=== PATIENT | female | born 1955 | race Caucasian/White ===

== ENCOUNTER 2017-02-04 19:56 | Emergency (ER) | payer BC ==
[2017-02-04 20:23] VITALS: BP 118/74
--- NOTE | 2017-02-04 21:19 | RAD ---
INDICATION: Right fifth toe trauma. TECHNIQUE: 3 views of the right fifth toe were obtained. FINDINGS: The bones are in normal alignment. No fracture is seen. Joint spaces appear maintained. IMPRESSION: NO EVIDENCE FOR FRACTURE.
--- NOTE | 2017-02-04 21:42 | UC ---
Lower Extremity/Ankle HPI - HPI Summary HPI Summary: ON 01/29/17 CLOSED CAR DOOR ONTO RIGHT FOOT (FIFTH TOE). SINCE TIME OF INJURY HAS TREATED INJURY WITH LISA TAPING, ICE, BUT HAS BEEN WALKING MILES TO WORK EACH DAY. - History of Current Complaint Chief Complaint: UCLowerExtremity Stated Complaint: TOE INJURY Time Seen by Provider: 02/04/17 20:17 Hx Obtained From: Patient Onset/Duration: Sudden Onset, Lasting Days, Still Present Severity Initially: Moderate Severity Currently: Moderate Aggravating Factor(s): Standing, Ambulation Alleviating Factor(s): Rest Able to Bear Weight: Yes - Risk Factors Gout Risk Factors: Negative DVT Risk Factors: Negative, Recent Trauma Septic Arthritis Risk Factor: Negative - Allergies/Home Medications Allergies/Adverse Reactions: Allergies Allergy/AdvReac Type Severity Reaction Status Date / Time No Known Allergies Allergy Verified 04/20/16 14:36 PMH/Surg Hx/FS Hx/Imm Hx Previously Healthy: Yes Endocrine History Of: Denies: Diabetes, Thyroid Disease Cardiovascular History Of: Denies: Cardiac Disorders, Hypertension, Pacemaker/ICD Respiratory History Of: Denies: COPD, Asthma GI/ History Of: Denies: Gastroesophageal Reflux, Ulcer, Renal Disease Neurological History Of: Reports: Migraine - OCCASSIONAL, NONE IN 2013, RELIEVED WITH OTC Denies: CVA, Dementia, Seizures Cancer History Of: Denies: Breast Cancer Other History Of: Negative For: Anticoagulant Therapy - Surgical History Surgical History: Yes Surgery Procedure, Year, and Place: 1973 RUPTURED APPENDECTOMY [facility]. 1986 [facility] [place]. TONSILLECTOMY [facility] [place]. 2012 fx right arm/wrist - Family History Known Family History: Positive: None Negative: Blood Disorder - Social History Occupation: Employed Full-time Lives: With Family Alcohol Use: Occasionally Substance Use Type: None Smoking Status (MU): Never Smoked Tobacco Review of Systems Constitutional: Negative Skin: Negative Eyes: Negative ENT: Negative Respiratory: Negative Cardiovascular: Negative Gastrointestinal: Negative Genitourinary: Negative Motor: Negative Neurovascular: Negative Musculoskeletal: Arthralgia - LEFT FIFTH TOE TENDERNESS, Myalgia - LEFT FIFTH TOE TENDERNESS RADIATES TO LEFT FIFTH Neurological: Negative Psychological: Negative All Other Systems Reviewed And Are Negative: Yes Physical Exam Triage Information Reviewed: Yes Appearance: Well-Appearing, No Pain Distress, Well-Nourished Vital Signs: Initial Vital Signs Temp 98.6 F 02/04/17 20:17 Pulse 80 02/04/17 20:17 Resp 16 02/04/17 20:17 BP 118/74 02/04/17 20:17 Pulse Ox 97 02/04/17 20:17 Vital Signs Reviewed: Yes Eye Exam: Normal ENT Exam: Normal ENT: Positive: Normal ENT inspection Dental Exam: Normal Neck exam: Normal Respiratory Exam: Normal Respiratory: Positive: Chest non-tender, Lungs clear, Normal breath sounds, No respiratory distress, No accessory muscle use Cardiovascular Exam: Normal Cardiovascular: Positive: RRR, No Murmur, Pulses Normal Abdominal Exam: Normal Musculoskeletal: Positive: Other: - TENDERNESS AT LEFT GREAT TOE Neurological Exam: Normal Neurological: Positive: Alert Psychological Exam: Normal Skin Exam: Normal Lower Extremity Course/Dx - Differential Dx/Diagnosis Differential Diagnosis/HQI/PQRI: Contusion, Fracture (Closed), Sprain, Strain Provider Diagnoses: LEFT FIFTH TOE CONTUSION. LEFT FIFTH TOE MUSCLE STRAIN Discharge - Discharge Plan Condition: Stable Disposition: HOME Patient Education Materials: Muscle Strain (ED), Foot Contusion (ED), RICE Therapy (ED) Referrals: [facility] [place] [facility] [Outside] Savana Rojas MD [Primary Care Provider] -
== END 2017-02-04 21:42 | disposition home or self-care (01) ==
LOC: UCEAST 19:56
DX: S90.122A Contusion of left lesser toe(s) without damage to nail, initial encounter (principal); S96.912A Strain of unspecified muscle and tendon at ankle and foot level, left foot, initial encounter; W23.0XXA Caught, crushed, jammed, or pinched between moving objects, initial encounter; Y93.9 Activity, unspecified; Y92.810 Car as the place of occurrence of the external cause
CPT/HCPCS: 99211; G0463

== ENCOUNTER 2017-12-29 11:33 | Day surgery (SDC) | payer BC ==
[~2017-12-29 11:33] MED LIST: Buffered Lidocaine 0.9% SYRIN* 5 ML/SYR SYRINGE INTRADERM ONE; Dexamethasone IV* 4 MG/ML 1 ML (4 MG) IV SLOW PU ONE
[2017-12-29] MEDS ORDERED: Dexamethasone IV* 4 MG/ML 1 ML (4 MG) ONE (11:39)
[2017-12-29] MEDS ORDERED: Buffered Lidocaine 0.9% SYRIN* 5 ML/SYR SYRINGE ONE (12:56)
[2017-12-29] MEDS ORDERED: Midazolam* 1 MG/ML 2 ML VIAL (2 MG) ONE (12:57)
[2017-12-29] MEDS ORDERED: fentaNYL* 50 MCG/ML 5 ML VIAL (250 MCG VIAL) ONE (12:57)
[2017-12-29] MEDS ORDERED: Atracurium* 10 MG/ML 10 ML VIAL ONE (12:57)
[2017-12-29] MEDS ORDERED: Propofol* 10 MG/ML 20 ML BTL IV PUSH ONE (12:58)
[2017-12-29] MEDS ORDERED: Lidocaine 2% PF * 5 ML VIAL ONE (12:58)
[2017-12-29] MEDS ORDERED: Ondansetron INJ* 2 MG/ML VIAL ONE ×2 (12:58→14:53)
[2017-12-29] MEDS ORDERED: Naloxone* 0.4 MG/ML 1 ML VIAL IV PRN (13:02)
[2017-12-29] MEDS ORDERED: fentaNYL* 50 MCG/ML 2 ML VIAL (100 MCG VIAL) IV PRN (13:02)
[2017-12-29] MEDS ORDERED: oxyCODONE/Acetamin 5/325 MG* TAB PO PRN (13:02)
[2017-12-29] MEDS ORDERED: DiMENhydriNATE IV* 50 MG/ML VIAL IV PUSH PRN (13:02)
[2017-12-29] MEDS ORDERED: Ondansetron INJ* 2 MG/ML VIAL IV PRN (13:02)
[2017-12-29] MEDS ORDERED: Scopolamine 1.5 mg* PATCH ONE (13:04)
[2017-12-29] MEDS ORDERED: Scopolamine 1.5 mg* PATCH TRANSDERM SCH (14:00)
[2017-12-29 16:43] VITALS: BP 116/69
--- NOTE | 2017-12-30 11:51 | PRO ---
BRONCHOSCOPY REPORT: DATE OF PROCEDURE: 12/29/17 PROCEDURE PERFORMED: Bronchoscopy with endobronchial ultrasound-guided fine needle aspiration of mediastinal nodes. PREPROCEDURAL DIAGNOSIS: Lymphadenopathy. ANESTHESIA: General anesthesia. ANESTHESIOLOGIST: Dr. Sharif. DESCRIPTION OF PROCEDURE: Informed consent was obtained from the patient prior to the procedure after all the risks and benefits were thoroughly explained. The patient recently found to have significantly enlarged mediastinal and hilar nodes on CT chest. Appropriate time-out was performed and agreed on by attending staff prior to the procedure. The patient was intubated with size 8.5 endotracheal tube. Flexible Olympus bronchoscope was inserted through ET tube for airway inspection. No endobronchial lesions were noted. There was evidence of erythema of mucosa especially on the right side. Minimal secretions were noted. Bronchoscope was then withdrawn and EBUS bronchoscope was inserted through ET tube. Station R4 lymph node was accessed with 4 passes. Rapid on-site evaluation revealed lymphatic tissue in all 4 passes, no malignant cells were noted. Few granulomas were noted. Station 7 lymph node was accessed with 4 passes. Rapid on- site evaluation revealed few granulomas, adequate lymphatic tissue, no malignant cells. Station R10 lymph node was accessed with 4 passes also. Rapid on-site evaluation revealed adequate lymphatic tissue, no malignant cells and few granulomas. The patient tolerated the procedure well. The patient was extubated and seen in Recovery in optimal condition. [id number]/[facility] #: [id number] MTDD
== END 2017-12-29 17:02 | disposition home or self-care (01) ==
LOC: OR 11:33
PROVIDERS: ATTEND Internal Medicine
DX: R59.0 Localized enlarged lymph nodes (principal); E83.52 Hypercalcemia; R63.4 Abnormal weight loss; K62.5 Hemorrhage of anus and rectum; R30.0 Dysuria; B37.3 Candidiasis of vulva and vagina; R11.0 Nausea
CPT/HCPCS: 88172; 88173; 88177; 88184; 88188; 88305; A9270-GY; J1100; J2250; J2405; J2704; J3010